=== PATIENT | female | born 1965 | race Caucasian/White ===

== ENCOUNTER 2018-01-24 05:36 | Observation (INO) | payer MEDICARE, MEDICAID ==
[2018-01-23 13:00] LABS: BASOPHILS % (AUTO) 0.5 % (0-1); EOSINOPHILS # (AUTO) 0.2 X10'3 (0-0.9); EOSINOPHILS % (AUTO) 2.4 % (0-6); LYMPHOCYTES # (AUTO) 0.9 X10'3 (1.1-4.8); LYMPHOCYTES % (AUTO) 12.9 % (21-51); MEAN CORPUSCULAR HEMOGLOBIN 35.1 PG (27.0-31.0); MONOCYTES # (AUTO) 0.6 X10'3 (0-0.9); MONOCYTES % (AUTO) 8.4 % (2-12); NEUTROPHILS # (AUTO) 5.2 X10'3 (1.8-7.7); NEUTROPHILS % (AUTO) 75.8 % (42-75); PRE OP HEMATOCRIT 35.8 % (35.0-45.0); PRE OP HEMOGLOBIN 12.2 g/dL (12.0-16.0); PRE OP PLATELET COUNT 255 X10'3 (140-440); RED BLOOD COUNT 3.47 X10'6 (4.20-5.60); RED CELL DISTRIBUTION WIDTH 14.5 % (11.5-14.5)
[2018-01-23 13:17] LABS: ALBUMIN 3.2 G/DL (3.4-5.0); ALBUMIN/GLOBULIN RATIO 0.8 (1.1-1.5); ALKALINE PHOSPHATASE 63 IU/L (46-116); BLOOD UREA NITROGEN 17 MG/DL (7-18); BUN/CREATININE RATIO 21.8 (6.6-38.0); CALCIUM 8.3 MG/DL (8.5-10.1); CHLORIDE 108 MMOL/L (99-107); CREATININE 0.78 MG/DL (0.40-0.90); PRE OP ALT 12 U/L (30-65); PRE OP ANION GAP 8 (8-16); PRE OP AST 22 U/L (10-37); PRE OP BILIRUB, TOTAL 0.2 MG/DL (0.0-1.0); PRE OP GLUCOSE 65 MG/DL (70-104); PRE OP POTASSIUM 3.8 MMOL/L (3.4-5.1); PRE OP SODIUM 148 MMOL/L (135-145); TOTAL CARBON DIOXIDE 32.4 MMOL/L (24-32); TOTAL PROTEIN 7.3 G/DL (6.4-8.2); eGFR 77 ML/MIN
[~2018-01-24] VITALS: Ht 134.6 cm; Wt 46.0 kg
[2018-01-24] VITALS (24 sets, daily range): BP systolic 84–132; BP diastolic 38–78
[~2018-01-24 05:36] MED LIST: DONE10TA6 PO; ESOM40CA30 PO; LEVO50TA8 PO; SIMV20TA5 PO; cefazolin/dext.iso 2gm/50ml 50 ML IV ONE; famotidine 20mg tablet PO ONE
[2018-01-24] MEDS ORDERED: LIDOcaine 1% (10mg/ml) 2ml vial ONE (06:05)
[2018-01-24] MEDS: ringers solution, lacted 1,000 ML IV SCH ×2 (06:29→12:05)
[2018-01-24] MEDS ORDERED: ROPIVAcaine 0.5% (5mg/ml) 30ml vial ONE ×2 (07:01→07:23)
[2018-01-24] MEDS ORDERED: ketorolac trometh. 30mg/ml inj. ONE (07:01)
[2018-01-24] MEDS ORDERED: sevoflurane 250ml liquid IH ONE (07:21)
[2018-01-24] MEDS ORDERED: ePHEDrine 50MG/ML INJ. ONE (07:21)
[2018-01-24] MEDS ORDERED: cloNIDine hcl/PF 100mcg/ml inj ONE (07:23)
[2018-01-24] MEDS ORDERED: fentaNYL/PF 50MCG/1 ML 2ML syringe ONE (07:26)
[2018-01-24] MEDS ORDERED: MIDAZolam 5mg/5ml vial ONE (07:27)
[2018-01-24] MEDS ORDERED: ondansetron/PF 4mg/2ml inj IV PRN ×2 (08:25→09:55)
[2018-01-24] MEDS ORDERED: morphine 2 MG/ML inj. syringe IV PRN ×2 (08:25)
[2018-01-24] MEDS ORDERED: meperidine/PF 50mg/ml syringe IV PRN ×3 (08:25)
[2018-01-24] MEDS ORDERED: ringers solution, lacted 1,000 ML IV SCH (08:25)
[2018-01-24] MEDS ORDERED: proCHLORperazine 10 MG/2 ml inj IV PRN (08:25)
[2018-01-24] MEDS ORDERED: propofol inj 20 ML IV ONE (08:51)
[2018-01-24] MEDS ORDERED: rocuronium 10mg/ml inj IV ONE (08:51)
[2018-01-24] MEDS ORDERED: glycopyrrolate 0.2mg/ml inj ONE (08:52)
[2018-01-24] MEDS ORDERED: dexamethasone sod phosphate 4mg/ml inj. ONE (08:52)
[2018-01-24] MEDS ORDERED: neostigmine methylsulfate 1 MG/ML 10ml vial ONE (08:54)
[2018-01-24] MEDS ORDERED: diphenhydrAMINE 25mg capsule PO PRN ×2 (09:55)
[2018-01-24] MEDS ORDERED: HYDROmorphone inj. 0.5 MG/0.5 ML DISP.SYRIN IV PRN ×2 (09:55)
[2018-01-24] MEDS ORDERED: bisacodyl 10mg suppository rectal RC PRN (09:55)
[2018-01-24] MEDS ORDERED: oxyCODONE IR 5mg (immed. release) tablet PO PRN (09:55)
[2018-01-24] MEDS ORDERED: magnesium hydroxide 30ml (MOM) UD suspension PO PRN (09:55)
[2018-01-24] MEDS ORDERED: acetaminophen 325mg tablet PO PRN (09:55)
[2018-01-24] MEDS: gabapentin 300mg capsule PO SCH ×2 (12:28→20:17)
[2018-01-24] MEDS: potassium cl 20mEq in 1/2 NS 1,000 ML IV SCH ×3 (12:29→22:04)
[2018-01-24] MEDS: ketorolac tromethamine 15mg/ml inj. IV SCH ×2 (13:27→20:19)
[2018-01-24] MEDS: acetaminophen 325mg tablet PO SCH ×2 (13:27→20:17)
[2018-01-24] MEDS: cefazolin 1gm/NS 100mL 100 ML IV SCH (15:31)
[2018-01-24] MEDS ORDERED: celeCOXIB 100mg capsule PO SCH (20:00)
[2018-01-24] MEDS ORDERED: sennosides 8.6mg tablet PO SCH (21:00)
[2018-01-24] MEDS ORDERED: atorvastatin 10mg tablet PO SCH (21:00)
[2018-01-24] MEDS ORDERED: donepezil 5mg tablet PO SCH (21:00)
[2018-01-24] MEDS: oxyCODONE IR 5mg (immed. release) tablet PO PRN (22:53)
[2018-01-25] MEDS: cefazolin 1gm/NS 100mL 100 ML IV SCH (00:12)
[2018-01-25] MEDS: potassium cl 20mEq in 1/2 NS 1,000 ML IV SCH ×2 (00:13→08:49)
[2018-01-25 02:00] VITALS: BP 105/41
[2018-01-25] MEDS: acetaminophen 325mg tablet PO SCH ×2 (02:00→07:22)
[2018-01-25] MEDS: ketorolac tromethamine 15mg/ml inj. IV SCH ×2 (02:20→08:48)
[2018-01-25 06:00] VITALS: BP 95/46
[2018-01-25 06:59] LABS: BASOPHILS % (AUTO) 0.5 % (0-1); EOSINOPHILS # (AUTO) 0.1 X10'3 (0-0.9); EOSINOPHILS % (AUTO) 1.3 % (0-6); HEMATOCRIT 33.6 % (35.0-45.0); HEMOGLOBIN 11.2 g/dl (12.0-16.0); LYMPHOCYTES # (AUTO) 1.4 X10'3 (1.1-4.8); LYMPHOCYTES % (AUTO) 21.6 % (21-51); MEAN CORPUSCULAR HEMOGLOBIN 34.6 PG (27.0-31.0); MEAN CORPUSCULAR HGB CONC 33.4 % (33.0-36.5); MEAN CORPUSCULAR VOLUME 103.4 FL (78-98); MEAN PLATELET VOLUME 7.8 FL (7.4-10.4); MONOCYTES # (AUTO) 0.6 X10'3 (0-0.9); MONOCYTES % (AUTO) 8.9 % (2-12); NEUTROPHILS # (AUTO) 4.5 X10'3 (1.8-7.7); NEUTROPHILS % (AUTO) 67.7 % (42-75); PLATELET COUNT 210 X10'3 (140-440); RED BLOOD COUNT 3.25 X10'6 (4.20-5.60); RED CELL DISTRIBUTION WIDTH 14.7 % (11.5-14.5); WHITE BLOOD COUNT 6.7 X10'3 (4.5-11.0)
[2018-01-25] MEDS ORDERED: levoTHYROXINE 25mcg tablet PO SCH (07:00)
[2018-01-25 07:16] LABS: ANION GAP 5 (8-16); CHLORIDE 107 MMOL/L (99-107); POTASSIUM 4.2 MMOL/L (3.5-5.1); SODIUM 142 MMOL/L (135-145); TOTAL CARBON DIOXIDE 30.3 MMOL/L (24-32)
[2018-01-25] MEDS: gabapentin 300mg capsule PO SCH (07:21)
[2018-01-25] MEDS: oxyCODONE IR 5mg (immed. release) tablet PO PRN (07:22)
[2018-01-25] MEDS ORDERED: pantoprazole 40mg Tablet.DR PO SCH (07:30)
[2018-01-25] MEDS ORDERED: atorvastatin 10mg tablet PO SCH (08:00)
[2018-01-25] MEDS ORDERED: aspirin 325mg tablet PO SCH (08:30)
[2018-01-25] MEDS ORDERED: OXYC-150 PO (08:53)
[2018-01-26] MEDS ORDERED: acetaminophen 325mg tablet PO PRN (09:55)
== END 2018-01-25 10:52 | disposition home or self-care (01) ==
LOC: PAS 05:36 → ORTHO 4S 09:54 → PAS 09:55 → ORTHO 4S 09:56
PROVIDERS: ADMIT Orthopaedic Surgery; ATTEND Orthopaedic Surgery
DX: S42.221A 2-part displaced fracture of surgical neck of right humerus, initial encounter for closed fracture (principal); I25.10 Atherosclerotic heart disease of native coronary artery without angina pectoris; E03.9 Hypothyroidism, unspecified; E78.5 Hyperlipidemia, unspecified; Q90.9 Down syndrome, unspecified; G47.30 Sleep apnea, unspecified; W19.XXXA Unspecified fall, initial encounter; Y93.89 Activity, other specified; Y92.89 Other specified places as the place of occurrence of the external cause; Y99.8 Other external cause status; Z95.5 Presence of coronary angioplasty implant and graft
CPT/HCPCS: 23615; 36415; 73060; 76001; 80051; 80053; 82948; 85025; 93005; 96365; 96375; 96376; 97116; 97161; 97530; A4565; C1713; G0378; J0690; J0735; J1100; J1885; J2250; J2704; J2710; J2795; J3010; J3490; J7030; J7120; A7000